=== PATIENT | male | born 1970 | race Caucasian/White ===

== ENCOUNTER 2021-08-29 16:23 | Emergency (ER) | payer OTHER ==
[~2021-08-29] VITALS: Ht 165.1 cm; Wt 82.1 kg
[2021-08-29 16:33] VITALS: BP 147/79
--- NOTE | 2021-08-29 16:40 | NUR ---
Patient ambulated to bed 12 with steady/even gait.
--- NOTE | 2021-08-29 17:00 | NUR ---
51 y/o M BIB self from home c/o elevated blood pressure, SOB, fatigue, and intermittent "heart racing" x 2 weeks. Patient A&Ox4, ambulatory, states his fast heart rate will wake him up at night and has been experiencing blurry vision with "feeling like my feet are hot when I walk." Denies drug use; last caffenie intake 6 days ago. Denies headache, chest pain, abdominal pain, fever, chills, n/v/d. Denies medications prior to arrival. No edema noted. Skin pink/warm/dry. Cap refill <2 seconds. Bed locked in lowest position, side rails x 1. PMH: HTN, PRE-DM MEDS: LISINOPRIL, METFORMIN NKA
--- NOTE | 2021-08-29 17:24 | NUR ---
KAROLINA Harding is evaluating patient at bedside
[2021-08-29] MEDS ORDERED: HYDR12.51 PO ×2 (17:31→18:18)
--- NOTE | 2021-08-29 17:50 | NUR ---
Patient discharged with v/s stable. Written and verbal after care instructions given and explained for Hypertension. Patient alert, oriented and verbalized understanding of instructions. Ambulatory with steady gait. All questions addressed prior to discharge. ID band removed. Patient advised to follow up with PMD. Rx of Hydrochlorothiazide given. Patient educated on indication of medication including possible reaction and side effects. Opportunity to ask questions provided and answered.
== END 2021-08-29 17:50 | disposition home or self-care (01) ==
LOC: MED 16:23
DX: I10 Essential (primary) hypertension (principal); Z79.899 Other long term (current) drug therapy
CPT/HCPCS: 93005; 99283

== ENCOUNTER 2021-12-01 11:47 | Emergency (ER) | payer OTHER ==
[~2021-12-01] VITALS: Ht 165.1 cm; Wt 77.1 kg
[~2021-12-01 11:47] MED LIST: HYDR12.51 PO
[2021-12-01 11:56] VITALS: BP 120/66
--- NOTE | 2021-12-01 11:59 | NUR ---
TENT2
--- NOTE | 2021-12-01 12:40 | NUR ---
NO NURSING INTERVENTION NEEDED, SEEN & TREATED BY KAROLINA OJEDA.
[2021-12-01] MEDS ORDERED: PROM118S5 PO (12:47)
[2021-12-01] MEDS ORDERED: IBUP-2213 PO (12:47)
[2021-12-01] MEDS ORDERED: NIRM1TAB PO (12:47)
[2021-12-01 12:58] VITALS: BP 116/62
--- NOTE | 2021-12-01 12:58 | NUR ---
Note manishaclara in EDM - 12/01/21 at 1458 by [facility] Patient discharged with v/s stable. Written and verbal after care instructions given and explained. Patient alert, oriented and verbalized understanding of instructions. Ambulatory with steady gait. All questions addressed prior to discharge. ID band removed. Patient advised to follow up with PMD. Rx of IBUPROFEN, PAXLOVID given. Patient educated on indication of medication including possible reaction and side effects. Opportunity to ask questions provided and answered.
--- NOTE | 2021-12-01 12:58 | NUR ---
Patient discharged with v/s stable. Written and verbal after care instructions given and explained. Patient alert, oriented and verbalized understanding of instructions. Ambulatory with steady gait. All questions addressed prior to discharge. ID band removed. Patient advised to follow up with PMD. Rx of IBUPROFEN, PAXLOVID& PROMETHAZINE given. Patient educated on indication of medication including possible reaction and side effects. Opportunity to ask questions provided and answered.
== END 2021-12-01 12:58 | disposition home or self-care (01) ==
LOC: MED 11:47
DX: U07.1 COVID-19 (principal); B34.9 Viral infection, unspecified; I10 Essential (primary) hypertension; Z79.899 Other long term (current) drug therapy
CPT/HCPCS: 99283

== ENCOUNTER 2021-12-26 18:09 | Emergency (ER) | payer OTHER ==
[~2021-12-26] VITALS: Ht 165.1 cm; Wt 81.6 kg
[~2021-12-26 18:09] MED LIST changes: +IBUP-2213 PO; +NIRM1TAB PO; +PROM118S5 PO
[2021-12-26 18:42] VITALS: BP 155/88
[2021-12-26] MEDS ORDERED: METH4TAB1 PO (19:57)
[2021-12-26 20:20] VITALS: BP 155/88
--- NOTE | 2021-12-26 20:20 | NUR ---
Patient discharged with v/s stable. Written and verbal after care instructions given and explained. Patient alert, oriented and verbalized understanding of instructions. Ambulatory with steady gait. All questions addressed prior to discharge. ID band removed. Patient advised to follow up with PMD. Rx of MEDROL given. Patient educated on indication of medication including possible reaction and side effects. Opportunity to ask questions provided and answered.
== END 2021-12-26 20:00 | disposition home or self-care (01) ==
LOC: MED 18:09
DX: J02.9 Acute pharyngitis, unspecified (principal); I10 Essential (primary) hypertension
CPT/HCPCS: 99283

== ENCOUNTER 2023-08-28 16:52 | Emergency (ER) | payer OTHER ==
[~2023-08-28] VITALS: Ht 152.4 cm; Wt 80.7 kg
[~2023-08-28 16:52] MED LIST changes: +METH4TAB1 PO
[2023-08-28 17:37] VITALS: BP 140/78; PULSE 70; RESP 16; TEMP 98; O2SAT 99
[2023-08-28] MEDS ORDERED: ERYT5OIN51 OP (17:51)
[2023-08-28] MEDS ORDERED: BENZ-300 PO (17:51)
[2023-08-28] MEDS ORDERED: FLONAS NS (17:51)
[2023-08-28 17:59] VITALS: BP 136/78; PULSE 82; RESP 16
== END 2023-08-28 18:00 | disposition home or self-care (01) ==
LOC: MED 16:52
DX: H01.00B Unspecified blepharitis left eye, upper and lower eyelids (principal); H01.00A Unspecified blepharitis right eye, upper and lower eyelids; J06.9 Acute upper respiratory infection, unspecified; H92.03 Otalgia, bilateral; E11.9 Type 2 diabetes mellitus without complications; Z79.4 Long term (current) use of insulin; Z79.899 Other long term (current) drug therapy
CPT/HCPCS: 99283

== ENCOUNTER 2023-09-10 19:33 | Emergency (ER) | payer OTHER ==
[~2023-09-10] VITALS: Ht 165.1 cm; Wt 79.4 kg
[~2023-09-10 19:33] MED LIST changes: +BENZ-300 PO; +ERYT5OIN51 OP; +FLONAS NS
[2023-09-10 19:58] VITALS: BP 149/71; PULSE 67; RESP 18; TEMP 97.5; O2SAT 97
[2023-09-10 21:25] VITALS: BP 149/71; PULSE 67; RESP 18; TEMP 97.5; O2SAT 97
[2023-09-10] MEDS ORDERED: DIPH25TA53 PO (21:44)
[2023-09-10] MEDS ORDERED: PRED20TA5 PO (21:44)
== END 2023-09-10 21:50 | disposition home or self-care (01) ==
LOC: MED 19:33
DX: R21 Rash and other nonspecific skin eruption (principal); I10 Essential (primary) hypertension; E11.9 Type 2 diabetes mellitus without complications; Z79.4 Long term (current) use of insulin; Z79.899 Other long term (current) drug therapy
CPT/HCPCS: 82948; 99283